=== PATIENT | male | born 1935 | race Caucasian/White ===

== ENCOUNTER 2017-04-05 15:04 | Emergency (ER) | payer MEDICARE, BC ==
--- NOTE | 2017-04-05 15:40 | EDM.PDOC ---
Scribed by Richa Lundberg 04/05/17 [id number] for Connor Anderson MD ED HPI GENERAL MEDICAL PROBLEM - General Chief Complaint: Genitourinary Problem Stated Complaint: STATUS POST SURG. CAN'T PEE Time Seen by Provider: 04/05/17 15:15 Source of Information: Reports: Patient, RN, RN Notes Reviewed History Limitations: Reports: No Limitations - History of Present Illness INITIAL COMMENTS - FREE TEXT/NARRATIVE: Patient presents with acute urinary retention. Unable to pass any urine for the past 4 hours. Patient is status post prostate surgery. He had his Jaimes catheter removed yesterday. Onset: Today Location: Reports: Other (bladder) Quality: Reports: Ache Severity: Severe Improves with: Reports: None Worsens with: Reports: None Associated Symptoms: Reports: No Other Symptoms Bladder Pain Score (Numeric/FACES): 8 - Related Data Allergies Allergy/AdvReac Type Severity Reaction Status Date / Time Iodinated Contrast- Oral and Allergy Rash Verified 12/18/16 13:13 IV Dye sulfamethoxazole Allergy Other Verified 12/18/16 13:13 [From Bactrim] trimethoprim [From Bactrim] Allergy Other Verified 12/18/16 13:13 ED ROS GENERAL - Review of Systems Review Of Systems: ROS reveals no pertinent complaints other than HPI. ED EXAM, RENAL/ - Physical Exam Exam: See Below Exam Limited By: No Limitations General Appearance: Alert, WD/WN, No Apparent Distress Respiratory/Chest: No Respiratory Distress, Lungs Clear, Normal Breath Sounds, No Accessory Muscle Use, Chest Non-Tender Cardiovascular: Normal Peripheral Pulses, Regular Rate, Rhythm, No Edema, No Gallop, No JVD, No Murmur, No Rub GI/Abdominal: Soft, Other (suprapubic tenderness and fullness. Nondistended abdomen with normal bowel sounds.) Skin Exam: Warm, Dry, Intact, Normal Color, No Rash Course - Vital Signs Last Recorded V/S: Last Vital Signs Temp 36.9 C 04/05/17 15:08 Pulse 78 04/05/17 15:08 Resp 18 04/05/17 15:08 BP 120/76 04/05/17 15:08 Pulse Ox 78 L 04/05/17 15:08 - Orders/Labs/Meds Orders: Active Orders 24 hr Category Date Time Status Insert Jaimes Catheter [Insert Urinary Catheter] [OM.PC] Care 04/05/17 15:15 Ordered Q24H Urinary Catheter Assessment [RC] ASDIRECTED Care 04/05/17 15:10 Active UA W/MICROSCOPIC [URIN] Stat Lab 04/05/17 15:20 Received - Re-Assessments/Exams Free Text/Narrative Re-Assessment/Exam: 04/05/17 15:32 Jaimes catheter inserted by RN. Departure - Departure Time of Disposition: 15:26 Disposition: Home, Self-Care 01 Condition: Fair Clinical Impression: Urinary retention - Discharge Information Instructions: Jaimes Catheter Care, Adult Forms: ED Department Discharge Additional Instructions: Call your urologist and informed them that you had catheter put back in. Follow up with Dr. Walsh tomorrow for catheter removal. - My Orders Last 24 Hours: My Active Orders 04/05/17 15:10 Urinary Catheter Assessment [RC] ASDIRECTED 04/05/17 15:15 Insert Jaimes Catheter [Insert Urinary Catheter] [OM.PC] Q24H 04/05/17 15:20 UA W/MICROSCOPIC [URIN] Stat - Assessment/Plan Last 24 Hours: My Active Orders 04/05/17 15:10 Urinary Catheter Assessment [RC] ASDIRECTED 04/05/17 15:15 Insert Jaimes Catheter [Insert Urinary Catheter] [OM.PC] Q24H 04/05/17 15:20 UA W/MICROSCOPIC [URIN] Stat I have read and agree with the documentation that has been completed regarding this visit. By signing this record, I attest that the documentation was completed in my physical presence and is an accurate record of the encounter.
== END 2017-04-05 15:50 | disposition home or self-care (01) ==
LOC: DL.ED 15:04
DX: R33.9 Retention of urine, unspecified (principal); Z88.2 Allergy status to sulfonamides; Z88.1 Allergy status to other antibiotic agents
CPT/HCPCS: 51702; 81001; 87086; 99283; 99284

== ENCOUNTER 2020-12-28 13:10 | Emergency (ER) | payer MEDICARE, BC ==
--- NOTE | 2020-12-28 13:50 | CT ---
PROCEDURE INFORMATION: Exam: CT Head Without Contrast Exam date and time: 12/28/2020 1:38 PM Age: 85 years old Clinical indication: Altered mental status/memory loss; Confusion or disorientation TECHNIQUE: Imaging protocol: Computed tomography of the head without contrast. Radiation optimization: All CT scans at this facility use at least one of these dose optimization techniques: automated exposure control; mA and/or kV adjustment per patient size (includes targeted exams where dose is matched to clinical indication); or iterative reconstruction. Other technique: STROKE PROTOCOL was implemented. COMPARISON: No relevant prior studies available. FINDINGS: Brain: There is mild amount of scattered areas of hypoattenuation of the supratentorial white matter, most likely secondary to microvascular ischemic changes. No acute intracranial hemorrhage. Cerebral ventricles: No ventriculomegaly. Paranasal sinuses: Visualized sinuses are unremarkable. No fluid levels. Mastoid air cells: Visualized mastoid air cells are well aerated. Bones/joints: Unremarkable. No acute fracture. Soft tissues: Unremarkable. IMPRESSION: No acute intracranial process. ASSESSMENT: ASPECTS ([place] Stroke Program Early CT Score) is 10.
--- NOTE | 2020-12-28 13:59 | EDM.PDOC ---
ED HPI GENERAL MEDICAL PROBLEM - General Stated Complaint: CONFUSED Time Seen by Provider: 12/28/20 14:28 Source of Information: Reports: Patient, Family, RN, RN Notes Reviewed History Limitations: Reports: No Limitations - History of Present Illness INITIAL COMMENTS - FREE TEXT/NARRATIVE: Patient i an 85-year-old male who presents to the ER with complaint of confusion. states patient was having difficulty speaking and identifying objects. This has since resolved. states dizzy spells in the past when dehydrated. Past medical history includes prostate CA and bilateral hip replacement. He is alert and oriented. Patient denies dizzy spells today, headache, blurred vision, or pain anywhere. H denies recent illness, fever or chills. Denies urinary symptoms, difficulty going with prostate CA. No new medications. No history of stroke. Onset: Today Duration: Resolved Prior to Arrival Severity: Moderate Improves with: Reports: None Worsens with: Reports: None Associated Symptoms: Reports: No Other Symptoms - Related Data Allergies Allergy/AdvReac Type Severity Reaction Status Date / Time Iodinated Contrast Media Allergy Rash Verified 12/28/20 14:09 [Iodinated Contrast- Oral and IV Dye] sulfamethoxazole Allergy Other Verified 12/28/20 14:09 [From Bactrim] trimethoprim [From Bactrim] Allergy Other Verified 12/28/20 14:09 Home Meds: Home Meds Acetaminophen [Tylenol] 1 tab PO ASDIRECTED PRN 04/05/17 [History] Calcium Carbonate [Calcium] 1 tab PO DAILY 04/05/17 [History] Finasteride 1 tab PO DAILY 04/05/17 [History] Multivitamin [Multivitamins] 1 tab PO ASDIRECTED PRN 04/05/17 [History] Omeprazole 1 tab PO DAILY 04/05/17 [History] Ibuprofen 400 mg PO Q6H 11/27/17 [History] Magnesium Oxide [Magnesium] 250 mg PO DAILY 11/30/17 [History] Past Medical History HEENT History: Reports: Impaired Vision Other HEENT History: wears glasses Cardiovascular History: Reports: None Respiratory History: Reports: None Gastrointestinal History: Reports: Colon Polyp, Diverticulosis, GERD Genitourinary History: Reports: None Musculoskeletal History: Reports: Arthritis, Back Pain, Chronic Neurological History: Reports: None Psychiatric History: Reports: None Endocrine/Metabolic History: Reports: Obesity/BMI 30+ Hematologic History: Reports: None Immunologic History: Reports: None Oncologic (Cancer) History: Reports: Leukemia, Prostate Other Oncologic History: 7 to 8 years ago. Dermatologic History: Reports: None - Infectious Disease History Infectious Disease History: Reports: Shingles - Past Surgical History HEENT Surgical History: Reports: Cataract Surgery GI Surgical History: Reports: Hernia, Inguinal, Polypectomy Male Surgical History: Reports: TURP-Transurethral Resection of Prostate Musculoskeletal Surgical History: Reports: Hip Replacement Oncologic Surgical History: Reports: Other (See Below) Other Oncologic Surgeries/Procedures: S/P PROSTRATE CA TX Social & Family History - Family History Family Medical History: No Pertinent Family History - Caffeine Use Caffeine Use: Reports: Coffee ED ROS GENERAL - Review of Systems Review Of Systems: Comprehensive ROS is negative, except as noted in HPI. - Physical Exam Exam: See Below Exam Limited By: No Limitations General Appearance: Alert, WD/WN, No Apparent Distress Eye Exam: Bilateral Eye: EOMI, Normal Inspection, PERRL Ears: Normal External Exam, Normal Canal, Hearing Grossly Normal, Normal TMs Nose: Normal Inspection, Normal Mucosa, No Blood Throat/Mouth: Normal Inspection, Normal Lips, Normal Teeth, Normal Gums, Normal Oropharynx, Normal Voice, No Airway Compromise Head Exam: Atraumatic, Normocephalic Neck: Normal Inspection, Supple, Non-Tender, Full Range of Motion Respiratory/Chest: Decreased Breath Sounds Cardiovascular: Normal Peripheral Pulses, Regular Rate, Rhythm, No Edema, No Gallop, No JVD, No Murmur, No Rub GI/Abdominal: Normal Bowel Sounds, Soft, Non-Tender, No Organomegaly, No Distention, No Abnormal Bruit, No Mass (Male) Exam: Deferred Rectal (Males) Exam: Deferred Neuro Exam (Abbreviated): Alert, Oriented, CN II-XII Intact, Normal Cognition, Normal Gait, Normal Reflexes, No Motor/Sensory Deficits Back Exam: Normal Inspection, Full Range of Motion, NT Extremities: Normal Inspection, Normal Range of Motion, Non-Tender, No Pedal Edema, Normal Capillary Refill Psychiatric: Normal Affect, Normal Mood Skin Exam: Warm, Dry, Intact, Normal Color, No Rash Course - Vital Signs Last Recorded V/S: Last Vital Signs Temp 97.3 F 12/28/20 14:00 Pulse 78 12/28/20 14:00 Resp 20 12/28/20 14:00 BP 118/71 12/28/20 14:00 Pulse Ox 93 L 12/28/20 14:00 - Orders/Labs/Meds Labs: Laboratory Tests 12/28/20 12/28/20 12/28/20 Range/Units 14:04 14:04 14:10 WBC 4.6 L (5.0-10.0) 10^3/uL RBC 4.77 (4.6-6.2) 10^6/uL Hgb 15.1 (14.0-18.0) g/dL Hct 45.1 (40.0-54.0) % MCV 94.5 (80-100) fL MCH 31.7 (27.0-34.0) pg MCHC 33.5 (33.0-35.0) g/dL Plt Count 116 L (150-450) 10^3/uL Neut % (Auto) 72.9 (42.2-75.2) % Lymph % (Auto) 16.3 L (20.5-50.1) % Hughes % (Auto) 7.8 (2-8) % Eos % (Auto) 2.6 (1.0-3.0) % Baso % (Auto) 0.4 (0.0-1.0) % Sodium 140 (136-145) mmol/L Potassium 4.3 (3.5-5.1) mmol/L Chloride 102 (98-107) mmol/L Carbon Dioxide 29 (21-32) mmol/L Anion Gap 13.3 H (7-13) mEq/L BUN 17 (7-18) mg/dL Creatinine 1.32 H (0.70-1.30) mg/dL Est Cr Clr Drug Dosing 43.01 mL/min Estimated GFR (MDRD) 52 BUN/Creatinine Ratio 12.9 (No establ ref range) Glucose 115 H (70-99) mg/dL Calcium 8.8 (8.5-10.1) mg/dL Total Bilirubin 0.9 (0.2-1.0) mg/dL AST 22 (15-37) U/L ALT 28 (16-63) U/L Alkaline Phosphatase 86 (46-116) U/L C-Reactive Protein < 0.2 (0.0-0.9) mg/dL Total Protein 6.2 L (6.4-8.2) g/dL Albumin 3.7 (3.4-5.0) g/dL Globulin 2.5 Albumin/Globulin Ratio 1.5 Urine Color Yellow (YELLOW) Urine Appearance Clear (CLEAR) Urine pH 7.0 (5.0-9.0) Ur Specific [place] 1.025 (1.005-1.030) Urine Protein Negative (NEGATIVE) Urine Glucose (UA) Negative (NEGATIVE) Urine Ketones Negative (NEGATIVE) Urine Occult Blood Negative (NEGATIVE) Urine Nitrite Negative (NEGATIVE) Urine Bilirubin Negative (NEGATIVE) Urine Urobilinogen 1.0 (0.2-1.0) mg/dL Ur Leukocyte Esterase Negative (NEGATIVE) Ethyl Alcohol < 3 (0) mg/dL - Radiology Interpretation Free Text/Narrative:: Head CT wo contrast: PROCEDURE INFORMATION: Exam: CT Head Without Contrast Exam date and time: 12/28/2020 1:38 PM Age: 85 years old Clinical indication: Altered mental status/memory loss; Confusion or disorientation TECHNIQUE: Imaging protocol: Computed tomography of the head without contrast. Radiation optimization: All CT scans at this facility use at least one of these dose optimization techniques: automated exposure control; mA and/or kV adjustment per patient size (includes targeted exams where dose is matched to clinical indication); or iterative reconstruction. Other technique: STROKE PROTOCOL was implemented. COMPARISON: No relevant prior studies available. FINDINGS: Brain: There is mild amount of scattered areas of hypoattenuation of the supratentorial white matter, most likely secondary to microvascular ischemic changes. No acute intracranial hemorrhage. Cerebral ventricles: No ventriculomegaly. Paranasal sinuses: Visualized sinuses are unremarkable. No fluid levels. Mastoid air cells: Visualized mastoid air cells are well aerated. Bones/joints: Unremarkable. No acute fracture. Soft tissues: Unremarkable. IMPRESSION: No acute intracranial process. ASSESSMENT: ASPECTS ([place] Stroke Program Early CT Score) is 10. Thank you for allowing us to participate in the care of your patient. Dictated and Authenticated by: Enrique Nayak MD 12/28/2020 1:50 PM Central Time ([place] & [place]) See rad report Departure - Departure Time of Disposition: 15:49 Disposition: Home, Self-Care 01 Condition: Good Clinical Impression: Episode of confusion - Discharge Information *PRESCRIPTION DRUG MONITORING PROGRAM REVIEWED*: No *COPY OF PRESCRIPTION DRUG MONITORING REPORT IN PATIENT ANNE: No Instructions: Confusion Forms: ED Department Discharge Additional Instructions: Follow-up with your primary care provider May begin taking a baby aspirin daily Return to the ER with any worsening of symptoms Sepsis Event Note (ED) - Focused Exam Vital Signs: Vital Signs Temp Pulse Resp BP Pulse Ox 12/28/20 14:00 97.3 F 78 20 118/71 93 L
[2020-12-28 14:28] LABS: ANION GAP 13.3 mEq/L (7-13); CHLORIDE,CL 102 mmol/L (98-107); SODIUM,NA 140 mmol/L (136-145)
== END 2020-12-28 15:59 | disposition home or self-care (01) ==
LOC: DL.ED 13:10
DX: R41.0 Disorientation, unspecified (principal); K21.9 Gastro-esophageal reflux disease without esophagitis; E66.9 Obesity, unspecified; Z68.29 Body mass index [BMI] 29.0-29.9, adult; Z91.041 Radiographic dye allergy status; Z88.1 Allergy status to other antibiotic agents; Z79.899 Other long term (current) drug therapy
CPT/HCPCS: 36415; 70450; 80053; 80307; 81003; 85025; 86140; 99285-25